=== PATIENT | female | born 1945 | race Caucasian/White ===

== ENCOUNTER 2021-05-29 16:10 | Inpatient (IN) | payer MEDICARE ==
[~2021-05-29] VITALS: Ht 154.9 cm; Wt 65.8 kg
[2021-05-29] MEDS ORDERED: FUROSEMIDE20 MG PO (17:25)
[2021-05-29] MEDS ORDERED: OXYCODON-ACETA1 EAC1 PO (17:25)
[2021-05-29] MEDS ORDERED: AMLODIPINE BESY10 MG PO (17:26)
[2021-05-29] MEDS ORDERED: MIRTAZAPINE30 MG PO (17:26)
[2021-05-29] MEDS ORDERED: GABAPENTIN300 MG PO (17:27)
[2021-05-29] MEDS ORDERED: METOPROLOL SUC100 MG PO (17:29)
[2021-05-29] MEDS ORDERED: SERTRALINE HCL50 MG PO (17:29)
[2021-05-29] MEDS ORDERED: GLUCOPHAGE 500500 MG PO (17:30)
[2021-05-29] MEDS ORDERED: PRAVASTATIN SOD40 MG PO (17:34)
[2021-05-29] MEDS ORDERED: LOSARTAN POTAS100 MG PO (17:34)
[2021-05-29 18:31] LABS: HEMOGLOBIN 10.5 gm/dl (12.3-15.3); RED BLOOD COUNT 3.73 M/UL (4.00-5.10); WHITE BLOOD COUNT 11.5 K/UL (4.5-11.0)
--- NOTE | 2021-05-29 20:36 | NUR ---
185- PATIENT ARRIVED FROM UNIT, DR MCGEE AT BESIDE TO INTUBATE PATIENT. 50 OF VIBHA AND 20 OF ETOM GIVEN PER IV PER MD. SEE EMAR. 1854-PATIENT INTUBATED 7.5 TUBE 23 AT LIP GOOD COLOR CHANGE AND BILATERAL BREATH SOUNDS. 1856- OG TUBE PLACED 16 FR. 1858-DIP STARTED AT 20 AND VIBHA STARTED AT 5. CENTRAL LINE PLACED TO RIGHT JUGULAR AT 1915.
[2021-05-30 08:34] LABS: HEMOGLOBIN 9.2 gm/dl (12.3-15.3)
[2021-05-30 08:35] LABS: RED BLOOD COUNT 3.26 M/UL (4.00-5.10); WHITE BLOOD COUNT 5.2 K/UL (4.5-11.0)
--- NOTE | 2021-05-30 17:41 | NUR ---
1630 PT UNPRONED PER ORDER. PT REMAINED STABLE THROUGHOUT PROCEDURE. NO SKIN BREAKDOWN NOTED. WILL CONTINUE TO MONITOR.
[2021-05-31 12:36] LABS: HEMOGLOBIN 9.5 gm/dl (12.3-15.3); RED BLOOD COUNT 3.44 M/UL (4.00-5.10); WHITE BLOOD COUNT 6.3 K/UL (4.5-11.0)
[2021-06-01 05:16] LABS: HEMOGLOBIN 10.2 gm/dl (12.3-15.3); RED BLOOD COUNT 3.75 M/UL (4.00-5.10)
[2021-06-01 05:21] LABS: WHITE BLOOD COUNT 3.8 K/UL (4.5-11.0)
[2021-06-02 04:43] LABS: HEMOGLOBIN 9.8 gm/dl (12.3-15.3); RED BLOOD COUNT 3.64 M/UL (4.00-5.10)
[2021-06-03 05:42] LABS: HEMOGLOBIN 10.5 gm/dl (12.3-15.3); RED BLOOD COUNT 3.89 M/UL (4.00-5.10)
[2021-06-03 06:06] LABS: BUN/CREATININE RATIO 55 (0-10)
--- NOTE | 2021-06-03 23:54 | NUR ---
PATIENT BATHED HAS CIRULAR SCAB RIGHT CHEST WALL NO DRAINAGE SKIN AROUND AREA IS CLEAN DRY INTACT PINK
[2021-06-04 04:41] LABS: HEMOGLOBIN 10.5 gm/dl (12.3-15.3); RED BLOOD COUNT 3.84 M/UL (4.00-5.10)
[2021-06-04 04:42] LABS: WHITE BLOOD COUNT 18.4 K/UL (4.5-11.0)
[2021-06-05 04:32] LABS: HEMOGLOBIN 10.5 gm/dl (12.3-15.3); RED BLOOD COUNT 3.88 M/UL (4.00-5.10); WHITE BLOOD COUNT 16.6 K/UL (4.5-11.0)
--- NOTE | 2021-06-05 22:09 | NUR ---
PATIENT BATHED, BOWEL MOVEMENT SOFT DARK BROWN, BUTTOCKS RED NON-BLANCHABLE ON WITH OPEN AREA TO LEFT OF COCCYX WITH BLOODY DRAINAGE, ALLEYN DRESSING PLACED ON PATIENT
--- NOTE | 2021-06-06 05:11 | NUR ---
PATIENT FLOATED ON PILLOWS ON HER BACK, PATIENT RESTING QUIETLY
[2021-06-06 07:45] LABS: HEMOGLOBIN 9.7 gm/dl (12.3-15.3); RED BLOOD COUNT 3.62 M/UL (4.00-5.10)
[2021-06-06 07:48] LABS: WHITE BLOOD COUNT 11.5 K/UL (4.5-11.0)
[2021-06-07 05:49] LABS: HEMOGLOBIN 8.6 gm/dl (12.3-15.3); WHITE BLOOD COUNT 10.7 K/UL (4.5-11.0)
[2021-06-07 05:50] LABS: RED BLOOD COUNT 3.14 M/UL (4.00-5.10)
--- NOTE | 2021-06-07 19:35 | NUR ---
PT WITH PATIENT, PATIENT SETTING ON BEDSIDE
--- NOTE | 2021-06-07 19:59 | NUR ---
PATIENT USED BEDSIDE COMMODE AND IS SITTING IN CHAIR AT BEDSIDE, O2 IS 92%, PATIENT IS ALERT AND ORIENTED
[2021-06-08 05:19] LABS: HEMOGLOBIN 8.6 gm/dl (12.3-15.3); RED BLOOD COUNT 3.15 M/UL (4.00-5.10); WHITE BLOOD COUNT 12.7 K/UL (4.5-11.0)
--- NOTE | 2021-06-08 19:45 | NUR ---
1846 AFTER ASSESSING MY PATIENT AND ASSURING THAT SHE IS ALERT AND ORIENTED I CONFIRMED WITH HER THE RESUSCITATION STATUS THAT SHE WANTED. SHE STATED "I WANT TO BE A DNR AND I DO NOT WANT TO BE REINTUBATED."
[2021-06-09 05:11] LABS: HEMOGLOBIN 8.6 gm/dl (12.3-15.3); RED BLOOD COUNT 3.12 M/UL (4.00-5.10); WHITE BLOOD COUNT 13.3 K/UL (4.5-11.0)
[2021-06-10 05:45] LABS: HEMOGLOBIN 8.8 gm/dl (12.3-15.3); RED BLOOD COUNT 3.25 M/UL (4.00-5.10); WHITE BLOOD COUNT 12.8 K/UL (4.5-11.0)
--- NOTE | 2021-06-10 13:10 | NUR ---
DAUGHTER AT BEDSIDE, DR. MCGEE AND DR. LANGFORD IN TO SEE PT AND DISCUSS POC WITH DAUGHTER AND HER . IN AGREEMENT WITH COMFORT MEASURES. BIPAP TAKEN OFF AT 1125 AND PLACED ON 2LNC. MEDS PER SEP.
== END 2021-06-10 13:56 | disposition expired | DRG 207 ==
LOC: PROG CARE 16:10 → CCU 16:10
PROVIDERS: Emergency Medicine; Internal Medicine; Internal Medicine Pulmonary Disease; ADMIT Internal Medicine
PROC: 0BH17EZ Insertion of Endotracheal Airway into Trachea, Via Natural or Artificial Opening (ICD-10-PCS; principal; 2021-05-29)
PROC: 5A1955Z Respiratory Ventilation, Greater than 96 Consecutive Hours (ICD-10-PCS; 2021-05-29)
PROC: 02HV33Z Insertion of Infusion Device into Superior Vena Cava, Percutaneous Approach (ICD-10-PCS; 2021-05-29)
PROC: B548ZZA Ultrasonography of Superior Vena Cava, Guidance (ICD-10-PCS; 2021-05-29)
PROC: 8E0ZXY6 Isolation (ICD-10-PCS; 2021-05-29)
PROC: XW033E5 Introduction of Remdesivir Anti-infective into Peripheral Vein, Percutaneous Approach, New Technology Group 5 (ICD-10-PCS; 2021-05-29)
PROC: 3E0333Z Introduction of Anti-inflammatory into Peripheral Vein, Percutaneous Approach (ICD-10-PCS; 2021-05-29)
PROC: 5A09357 Assistance with Respiratory Ventilation, Less than 24 Consecutive Hours, Continuous Positive Airway Pressure (ICD-10-PCS; 2021-05-29)
PROC: B24BZZZ Ultrasonography of Heart with Aorta (ICD-10-PCS; 2021-06-01)
PROC: 3E033XZ Introduction of Vasopressor into Peripheral Vein, Percutaneous Approach (ICD-10-PCS; 2021-06-03)
PROC: 5A0945A Assistance with Respiratory Ventilation, 24-96 Consecutive Hours, High Flow/Velocity Cannula (ICD-10-PCS; 2021-06-03)
PROC: 5A09557 Assistance with Respiratory Ventilation, Greater than 96 Consecutive Hours, Continuous Positive Airway Pressure (ICD-10-PCS; 2021-06-05)
DX: U07.1 COVID-19 (principal); J80 Acute respiratory distress syndrome; Z66 Do not resuscitate; Z51.5 Encounter for palliative care; J12.82 Pneumonia due to coronavirus disease 2019; J69.0 Pneumonitis due to inhalation of food and vomit; G92.8 Other toxic encephalopathy; I26.09 Other pulmonary embolism with acute cor pulmonale; J15.9 Unspecified bacterial pneumonia; N17.9 Acute kidney failure, unspecified; J90 Pleural effusion, not elsewhere classified; E87.1 Hypo-osmolality and hyponatremia; I13.0 Hypertensive heart and chronic kidney disease with heart failure and stage 1 through stage 4 chronic kidney disease, or unspecified chronic kidney disease; F11.20 Opioid dependence, uncomplicated; I50.32 Chronic diastolic (congestive) heart failure; E11.22 Type 2 diabetes mellitus with diabetic chronic kidney disease; E11.40 Type 2 diabetes mellitus with diabetic neuropathy, unspecified; G47.00 Insomnia, unspecified; D63.1 Anemia in chronic kidney disease; J44.9 Chronic obstructive pulmonary disease, unspecified; F17.210 Nicotine dependence, cigarettes, uncomplicated; N18.30 Chronic kidney disease, stage 3 unspecified; E78.5 Hyperlipidemia, unspecified; E66.9 Obesity, unspecified; E11.65 Type 2 diabetes mellitus with hyperglycemia; G89.29 Other chronic pain; F41.9 Anxiety disorder, unspecified; F32.A Depression, unspecified; R00.1 Bradycardia, unspecified; I48.0 Paroxysmal atrial fibrillation; R53.81 Other malaise; E11.649 Type 2 diabetes mellitus with hypoglycemia without coma; Z79.01 Long term (current) use of anticoagulants; Z90.49 Acquired absence of other specified parts of digestive tract; Z88.2 Allergy status to sulfonamides; Z88.8 Allergy status to other drugs, medicaments and biological substances; Z82.49 Family history of ischemic heart disease and other diseases of the circulatory system; Z83.3 Family history of diabetes mellitus; Z79.4 Long term (current) use of insulin; Z68.27 Body mass index [BMI] 27.0-27.9, adult
CPT/HCPCS: ECHO; 31500; 36415; 36600; 71045; 80048; 80053; 81001; 82803; 82962; 83036; 83605; 83735; 83880; 83921; 84132; 85025; 85027; 86140; 87040; 87081; 92526; 92610; 93005; 93306; 94002; 94003; 94640; 94660; 94664; 94760; 97161; 97530; A6212; C1751; C9113; J1100; J1335; J1650; J1940; J2060; J2270; J2704; J3010; J3480; J7030